=== PATIENT | male | born 1950 | race Caucasian/White ===

== ENCOUNTER 2017-10-17 16:42 | Emergency (ER) | payer OTHER ==
[2017-10-17] MEDS ORDERED: diltiaZEM INJ 5 MG/ML VIAL IVP STA (16:56)
--- NOTE | 2017-10-17 16:56 | ED Physician Documentation ---
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 No Cp or SOA. No H/O cardiac issues. Had a lightheaded episode 6 mos ago but without palpitations then.) Review of Systems Ten Systems: 10 systems reviewed and negative Constitutional: denies: Fever, Chills, Myalgias Ears: denies: Loss of hearing, Ear pain Nose: denies: Rhinorrhea / runny nose, Congestion Throat: denies: Sore throat Cardiac: reports: Palpitations. denies: Chest pain / pressure, Pedal edema, Calf pain Respiratory: denies: Dyspnea, Cough PD PAST MEDICAL HISTORY - Past Medical History Past Medical History: No - Present Medications Home Medications: Ambulatory Orders Medication Instructions Recorded Confirmed Terazosin [Hytrin] 0 mg PO QPM 10/17/17 10/17/17 - Allergies Allergies/Adverse Reactions: Allergies Allergy/AdvReac Type Severity Reaction Status Date / Time codeine Allergy Unknown Verified 10/17/17 16:51 - Social History Does the pt smoke?: No Does the pt drink ETOH?: No Does the pt have substance abuse?: No - Family History Family history: reports: CAD PD ED PE NORMAL - Vitals Vital signs reviewed: Yes - General General: Alert and oriented X 3, No acute distress - HEENT HEENT: PERRL, EOMI - Neck Neck: Supple, no meningeal sign, No bony TTP - Cardiac Cardiac: Other (irreg/irreg, no mmr) - Respiratory Respiratory: No respiratory distress, Clear bilaterally - Abdomen Abdomen: Soft, Non tender - Back Back: No CVA TTP, No spinal TTP - Derm Derm: Normal color, Warm and dry - Extremities Extremities: No edema, No calf tenderness / cord - Neuro Neuro: Alert and oriented X 3 Eye Opening: Spontaneous Motor: Obeys Commands Verbal: Oriented GCS Score: 15 - Psych Psych: Normal mood, Normal affect Results - Vitals Vitals: Vital Signs - 24 hr 10/17/17 10/17/17 10/17/17 16:44 17:05 17:22 Temperature 36.2 C L Heart Rate 92 152 H Respiratory 16 Rate Blood Pressure 103/88 H 104/76 O2 Saturation 98 10/17/17 10/17/17 10/17/17 17:33 18:28 18:59 Temperature Heart Rate 83 74 Respiratory 10 L 16 Rate Blood Pressure 97/69 102/75 112/80 O2 Saturation 96 99 Oxygen O2 Source Room air - EKG (time done) 1649 Rate: Rate (enter#) (128) Rhythm: Atrial fibrillation [place]: LAD QRS: Normal Ischemia: Normal ST segments Computer interpretation: Agree with computer 1857 Rate: Rate (enter#) (74) Rhythm: NSR [place]: LAD Intervals: Normal [place] QRS: Normal Ischemia: Non specific changes - Labs Labs: Laboratory Tests 10/17/17 10/17/17 10/17/17 17:00 17:00 17:00 WBC 7.9 RBC 4.45 L Hgb 13.1 L Hct 39.5 L MCV 88.7 MCH 29.4 MCHC 33.1 RDW 13.7 Plt Count 201 MPV 9.0 Neut # 4.8 Lymph # 2.2 [place] # 0.7 Eos # 0.2 Baso # 0.1 Absolute Nucleated RBC 0.00 Nucleated RBC % 0.1 Sodium 136 Potassium 3.9 Chloride 101 Carbon Dioxide 22 Anion Gap 13.0 BUN 22 H Creatinine 1.0 Estimated GFR (MDRD) 75 L Glucose 96 Calcium 9.2 Total Bilirubin 0.8 AST 25 ALT 20 Alkaline Phosphatase 43 Troponin I < 0.04 Total Protein 7.5 Albumin 4.6 Globulin 2.9 Albumin/Globulin Ratio 1.6 Lipase 26 TSH 10/17/17 17:00 WBC RBC Hgb Hct MCV MCH MCHC RDW Plt Count MPV Neut # Lymph # [place] # Eos # Baso # Absolute Nucleated RBC Nucleated RBC % Sodium Potassium Chloride Carbon Dioxide Anion Gap BUN Creatinine Estimated GFR (MDRD) Glucose Calcium Total Bilirubin AST ALT Alkaline Phosphatase Troponin I Total Protein Albumin Globulin Albumin/Globulin Ratio Lipase TSH 2.51 PD MEDICAL DECISION MAKING - ED course ED course: 67-year-old gentleman presents with new onset and acute atrial fibrillation. He was administered diltiazem with rate control, but still in A. fib. Procainamide drip was started and also given 2.5 mg of Lopressor IV at which point he converted to sinus rhythm. Departure - Departure Disposition: 01 Home, Self Care Clinical Impression: Atrial fibrillation Qualifiers: Atrial fibrillation type: paroxysmal Qualified Code(s): I48.0 - Paroxysmal atrial fibrillation Condition: Good Record reviewed to determine appropriate education?: Yes Instructions: Atrial Fibrillation Dc Comments: Take a baby aspirin daily. Follow-up with your doctor, I suspect he will want to do further testing including but not limited to echocardiogram. Return if worse.
[2017-10-17] MEDS ORDERED: DILTIAZEM 50 MG/10 ML VIAL IVP STA (16:58)
[2017-10-17 17:12] LABS: BASOPHILS # (AUTO) 0.1 10^3/uL (0.0-0.1); EOSINOPHILS # (AUTO) 0.2 10^3/uL (0.0-0.7); EOSINOPHILS % (AUTO) 1.9 %; HGB - HEMOGLOBIN 13.1 g/dL (14.0-18.0); LYMPHOCYTES # (AUTO) 2.2 10^3/uL (1.5-3.5); LYMPHOCYTES % (AUTO) 28.1 %; MEAN CORPUSCULAR HEMOGLOBIN 29.4 pg (27.0-31.0); MEAN CORPUSCULAR HGB CONC 33.1 g/dL (32.0-36.0); MEAN CORPUSCULAR VOLUME 88.7 fL (80.0-94.0); MONOCYTES # (AUTO) 0.7 10^3/uL (0.0-1.0); MONOCYTES % (AUTO) 8.9 %; NEUTROPHILS # (AUTO) 4.8 10^3/uL (1.5-6.6); NEUTROPHILS % (AUTO) 60.1 %; PLT - PLATELET COUNT 201 10^3/uL (130-450); RED BLOOD COUNT 4.45 10^6/uL (4.70-6.10); RED CELL DISTRIBUTION WIDTH 13.7 % (12.0-15.0); WHITE BLOOD COUNT 7.9 x10^3/uL (4.8-10.8)
[2017-10-17] MEDS ORDERED: DILTIAZEM 50 MG/10 ML VIAL IV ONE (17:17)
[2017-10-17 17:31] LABS: ALBUMIN 4.6 g/dL (3.2-5.5); ALBUMIN/GLOBULIN RATIO 1.6 (1.0-2.2); BILIRUBIN,TOTAL 0.8 mg/dL (0.2-1.0); CALCIUM 9.2 mg/dL (8.5-10.3); TOTAL PROTEIN 7.5 g/dL (6.7-8.2)
[2017-10-17] MEDS ORDERED: PROCAINAMIDE 1,000 MG in SODIUM CHLORIDE 0.9% 240 ML IV STA (17:41)
[2017-10-17] MEDS ORDERED: SODIUM CHLORIDE 0.9% 1,000 ML IV ONE (17:42)
[2017-10-17] MEDS ORDERED: METOPROLOL 5 MG/5 ML VIAL IVP STA (18:43)
[2017-10-17 19:25] VITALS: BP 103/72
== END 2017-10-17 19:31 | disposition home or self-care (01) ==
LOC: ED 16:42
DX: I48.0 Paroxysmal atrial fibrillation (principal)
CPT/HCPCS: 36415; 80053; 83690; 84443; 84484; 85025; 93005; 96361; 96374; 96375; 99284; J2690

== ENCOUNTER 2017-11-10 12:54 | Emergency (ER) | payer MEDICARE, OTHER ==
--- NOTE | 2017-11-10 13:24 | ED Physician Documentation ---
History of Present Illness - Stated complaint Stated Complaint: DIZZY - Chief complaint Chief Complaint: General - History obtained from History obtained from: Patient - History of Present Illness Timing: Today (67-year-old gentleman who had a first episode of atrial fibrillation and was seen by me little under month ago and converted with beta blockade here. He saw his GP in the interim and started on an event monitor he has had that for about 2 weeks, for the first week there was no events. For the last week he has had occasional events he does not know what they are. 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 denies: Abdominal Pain PD PAST MEDICAL HISTORY - Present Medications Home Medications: Ambulatory Orders Medication Instructions Recorded Confirmed Terazosin [Hytrin] 0 mg PO QPM 10/17/17 10/17/17 Metoprolol Tartrate 11/10/17 - Allergies Allergies/Adverse Reactions: Allergies Allergy/AdvReac Type Severity Reaction Status Date / Time codeine Allergy Unknown Verified 10/17/17 16:51 - Social History Does the pt smoke?: No Smoking Status: Never smoker Does the pt drink ETOH?: No Does the pt have substance abuse?: No PD ED PE NORMAL - Vitals Vital signs reviewed: Yes - General General: Alert and oriented X 3, No acute distress - HEENT HEENT: PERRL, EOMI - Neck Neck: Supple, no meningeal sign, No bony TTP - Cardiac Cardiac: RRR, No murmur - Respiratory Respiratory: No respiratory distress, Clear bilaterally - Abdomen Abdomen: Normal bowel sounds, Soft, Non tender - Extremities Extremities: No edema, No calf tenderness / cord - Neuro Neuro: Alert and oriented X 3, Other (NIHSS zero) Eye Opening: Spontaneous Motor: Obeys Commands Verbal: Oriented GCS Score: 15 - Psych Psych: Normal mood, Normal affect Results - Vitals Vitals: Vital Signs - 24 hr 11/10/17 11/10/17 11/10/17 13:17 13:25 14:31 Temperature 36.5 C Heart Rate 60 54 L 57 L Respiratory 16 16 Rate Blood Pressure 128/90 H 101/76 O2 Saturation 99 98 98 Oxygen O2 Source Room air - EKG (time done) 1327 Rate: Rate (enter#) (57) Rhythm: NSR [place]: LAD Intervals: Normal [place] QRS: Low voltage Ischemia: Normal ST segments Computer interpretation: Agree with computer - Labs Labs: Laboratory Tests 11/10/17 11/10/17 11/10/17 13:20 13:20 13:20 WBC 7.0 RBC 4.60 L Hgb 13.9 L Hct 40.6 L MCV 88.1 MCH 30.1 MCHC 34.2 RDW 13.3 Plt Count 199 MPV 8.2 Neut # 4.4 Lymph # 1.8 [place] # 0.6 Eos # 0.2 Baso # 0.1 Absolute Nucleated RBC 0.00 Nucleated RBC % 0.0 VBG Total Hgb VBG Oxyhemoglobin VBG Carboxyhemoglobin VBG Methemoglobin Sodium 130 L Potassium 4.1 Chloride 95 L Carbon Dioxide 27 Anion Gap 8.0 BUN 16 Creatinine 0.9 Estimated GFR (MDRD) 85 L Glucose 131 H Calcium 9.4 Magnesium 2.2 Total Bilirubin 1.0 AST 24 ALT 21 Alkaline Phosphatase 44 Troponin I < 0.04 Total Protein 7.4 Albumin 4.5 Globulin 2.9 Albumin/Globulin Ratio 1.6 Lipase 29 11/10/17 13:46 WBC RBC Hgb Hct MCV MCH MCHC RDW Plt Count MPV Neut # Lymph # [place] # Eos # Baso # Absolute Nucleated RBC Nucleated RBC % VBG Total Hgb 13.6 VBG Oxyhemoglobin 84 L VBG Carboxyhemoglobin 0.7 VBG Methemoglobin 0.2 Sodium Potassium Chloride Carbon Dioxide Anion Gap BUN Creatinine Estimated GFR (MDRD) Glucose Calcium Magnesium Total Bilirubin AST ALT Alkaline Phosphatase Troponin I Total Protein Albumin Globulin Albumin/Globulin Ratio Lipase PD MEDICAL DECISION MAKING - ED course ED course: He has vague complaints. No evidence of CVA on exam. In NSR on the monitor here. Departure - Departure Disposition: 01 Home, Self Care Clinical Impression: Dizzy Condition: Good Record reviewed to determine appropriate education?: Yes Instructions: ED Dizziness UKO Comments: Call your doctor to arrange a follow-up appointment, make the next available appointment. In the interim, return anytime if worse or if new symptoms develop. Discharge Date/Time: 11/10/17 14:33
[2017-11-10 13:36] LABS: BASOPHILS # (AUTO) 0.1 10^3/uL (0.0-0.1); BASOPHILS % (AUTO) 0.7 %; EOSINOPHILS # (AUTO) 0.2 10^3/uL (0.0-0.7); EOSINOPHILS % (AUTO) 2.8 %; HGB - HEMOGLOBIN 13.9 g/dL (14.0-18.0); LYMPHOCYTES # (AUTO) 1.8 10^3/uL (1.5-3.5); LYMPHOCYTES % (AUTO) 25.8 %; MEAN CORPUSCULAR HEMOGLOBIN 30.1 pg (27.0-31.0); MEAN CORPUSCULAR HGB CONC 34.2 g/dL (32.0-36.0); MEAN CORPUSCULAR VOLUME 88.1 fL (80.0-94.0); MEAN PLATELET VOLUME 8.2 fL (7.4-11.4); MONOCYTES # (AUTO) 0.6 10^3/uL (0.0-1.0); MONOCYTES % (AUTO) 8.1 %; NEUTROPHILS # (AUTO) 4.4 10^3/uL (1.5-6.6); NEUTROPHILS % (AUTO) 62.6 %; PLT - PLATELET COUNT 199 10^3/uL (130-450); RED CELL DISTRIBUTION WIDTH 13.3 % (12.0-15.0)
[2017-11-10 14:00] LABS: ALBUMIN 4.5 g/dL (3.2-5.5); ALBUMIN/GLOBULIN RATIO 1.6 (1.0-2.2); CALCIUM 9.4 mg/dL (8.5-10.3); CREATININE 0.9 mg/dL (0.6-1.2); MAGNESIUM 2.2 mg/dL (1.7-2.8); TOTAL PROTEIN 7.4 g/dL (6.7-8.2)
[2017-11-10 14:33] VITALS: BP 101/76
== END 2017-11-10 14:33 | disposition home or self-care (01) ==
LOC: ED 12:54
DX: R42 Dizziness and giddiness (principal); R11.0 Nausea
CPT/HCPCS: 36415; 80053; 82375; 83690; 83735; 84484; 85025; 93005; 99283

== ENCOUNTER 2019-04-10 17:53 | Emergency (ER) | payer MEDICARE, OTHER ==
[2019-04-10] MEDS ORDERED: KETOROLAC 30 MG/ML VIAL IVP STA (18:52)
[2019-04-10] MEDS ORDERED: LORazepam 2 MG/ML VIAL IVP STA (18:52)
[2019-04-10] MEDS ORDERED: ONDANSETRON 4 MG/2 ML VIAL IVP STA (18:52)
--- NOTE | 2019-04-10 18:57 | ED Physician Documentation ---
History of Present Illness - Stated complaint Stated Complaint: GROIN HERNIA - Chief complaint Chief Complaint: General - History obtained from History obtained from: Patient - History of Present Illness Timing: Other (4-month history of a left inguinal hernia that is been bothering him on and off. He had been able to reduce it when it pops out but it has been out for about an hour and cannot reduce it.) Review of Systems Ten Systems: 10 systems reviewed and negative Constitutional: reports: Reviewed and negative Cardiac: reports: Reviewed and negative Respiratory: reports: Reviewed and negative PD PAST MEDICAL HISTORY - Past Medical History Past Medical History: Yes Cardiovascular: Atrial fibrillation - Present Medications Home Medications: Ambulatory Orders Medication Instructions Recorded Confirmed Terazosin [Hytrin] 1 mg PO QPM 10/17/17 10/17/17 Metoprolol Tartrate 25 mg PO DAILY 11/10/17 - Allergies Allergies/Adverse Reactions: Allergies Allergy/AdvReac Type Severity Reaction Status Date / Time codeine Allergy Unknown Verified 04/10/19 19:07 - Social History Does the pt smoke?: No Smoking Status: Never smoker Does the pt drink ETOH?: No Does the pt have substance abuse?: No PD ED PE NORMAL - Vitals Vital signs reviewed: Yes - General General: Alert and oriented X 3, No acute distress - HEENT HEENT: PERRL, EOMI - Neck Neck: Supple, no meningeal sign, No bony TTP - Cardiac Cardiac: RRR, No murmur - Respiratory Respiratory: No respiratory distress, Clear bilaterally - Abdomen Abdomen: Other (Mild diffuse tenderness, there is a firm tender left inguinal hernia that I am unable to reduce on initial evaluation.) - Back Back: No CVA TTP, No spinal TTP - Derm Derm: Normal color, Warm and dry - Extremities Extremities: No edema, No calf tenderness / cord - Neuro Neuro: Alert and oriented X 3, Normal speech Results - Vitals Vitals: Vital Signs - 24 hr 04/10/19 04/10/19 04/10/19 18:03 19:13 19:40 Temperature 36.9 C 37.0 C Heart Rate 63 64 54 L Respiratory 16 18 14 Rate Blood Pressure 118/81 H 133/87 H 105/73 O2 Saturation 99 99 96 Oxygen O2 Source Room air - Labs Labs: Laboratory Tests 04/10/19 04/10/19 19:00 19:00 WBC 5.9 RBC 4.26 L Hgb 13.0 L Hct 37.7 L MCV 88.5 MCH 30.5 MCHC 34.5 RDW 12.7 Plt Count 198 MPV 9.6 Neut # (Auto) 3.3 Lymph # (Auto) 1.8 [place] # (Auto) 0.7 Eos # (Auto) 0.1 Baso # (Auto) 0.0 Absolute Nucleated RBC 0.00 Nucleated RBC % 0.0 Sodium 132 L Potassium 4.0 Chloride 95 L Carbon Dioxide 26 Anion Gap 11.0 BUN 17 Creatinine 0.9 Estimated GFR (MDRD) 84 L Glucose 93 Calcium 9.5 Total Bilirubin 0.7 AST 19 ALT 17 Alkaline Phosphatase 42 Total Protein 7.0 Albumin 4.4 Globulin 2.6 Albumin/Globulin Ratio 1.7 Lipase 35 PD MEDICAL DECISION MAKING - ED course ED course: After the administration of some Toradol and Ativan I was able to reduce the hernia. He will follow-up with a surgeon. Departure - Departure Disposition: 01 Home, Self Care Clinical Impression: Incarcerated left inguinal hernia Condition: Good Record reviewed to determine appropriate education?: Yes Instructions: ED Hernia Inguinal Comments: Follow-up with [facility] for a surgical referral. Return for new worsening symptoms. For your records, today received Toradol 30 mg IV and Ativan 1 mg IV to assist in the reduction. You did not throw up with that. Discharge Date/Time: 04/10/19 19:45
[2019-04-10 19:06] LABS: BASOPHILS % (AUTO) 0.5 %; EOSINOPHILS # (AUTO) 0.1 10^3/uL (0.0-0.7); EOSINOPHILS % (AUTO) 2.2 %; LYMPHOCYTES # (AUTO) 1.8 10^3/uL (1.5-3.5); LYMPHOCYTES % (AUTO) 29.8 %; MEAN CORPUSCULAR HEMOGLOBIN 30.5 pg (27.0-31.0); MEAN CORPUSCULAR HGB CONC 34.5 g/dL (32.0-36.0); MEAN CORPUSCULAR VOLUME 88.5 fL (80.0-94.0); MEAN PLATELET VOLUME 9.6 fL (7.4-11.4); MONOCYTES # (AUTO) 0.7 10^3/uL (0.0-1.0); MONOCYTES % (AUTO) 11.1 %; NEUTROPHILS # (AUTO) 3.3 10^3/uL (1.5-6.6); NEUTROPHILS % (AUTO) 56.2 %; PLT - PLATELET COUNT 198 10^3/uL (130-450); RED BLOOD COUNT 4.26 10^6/uL (4.70-6.10); RED CELL DISTRIBUTION WIDTH 12.7 % (12.0-15.0); WHITE BLOOD COUNT 5.9 x10^3/uL (4.8-10.8)
[2019-04-10 19:18] LABS: ALBUMIN 4.4 g/dL (3.2-5.5); ALBUMIN/GLOBULIN RATIO 1.7 (1.0-2.2); BILIRUBIN,TOTAL 0.7 mg/dL (0.2-1.0); CALCIUM 9.5 mg/dL (8.5-10.3); CREATININE 0.9 mg/dL (0.6-1.2)
[2019-04-10 19:41] VITALS: BP 105/73
== END 2019-04-10 19:45 | disposition home or self-care (01) ==
LOC: ED 17:53
DX: K40.30 Unilateral inguinal hernia, with obstruction, without gangrene, not specified as recurrent (principal)
CPT/HCPCS: 36415; 80053; 83690; 85025; 96374; 96375; 99283; J2060

== ENCOUNTER 2019-04-11 20:15 | Day surgery (SDC) | payer MEDICARE ==
[2019-04-11] MEDS ORDERED: SODIUM CHLORIDE 0.9% 1,000 ML IV ONE (21:29)
--- NOTE | 2019-04-11 21:33 | ED Physician Documentation ---
History of Present Illness - Stated complaint Stated Complaint: HERNIA NOT REDUCING - Chief complaint Chief Complaint: Abd Pain - History obtained from History obtained from: Patient - History of Present Illness Timing: Today, How many hours ago (1.5) Pain level max: 7 Pain level now: 6 - Additonal information Additional information: 68-year-old male presents to the emergency department with a left inguinal hernia. States increasing pain tonight and unable to reduce. Seen here last night for same. He is scheduled with a general surgeon on Monday in [place] for consultation. Review of Systems Ten Systems: 10 systems reviewed and negative Constitutional: denies: Fever, Chills Ears: denies: Ear pain Nose: denies: Rhinorrhea / runny nose, Congestion Throat: denies: Sore throat Cardiac: denies: Chest pain / pressure GI: denies: Vomiting, Diarrhea Skin: denies: Rash Musculoskeletal: denies: Neck pain, Back pain Neurologic: denies: Headache PD PAST MEDICAL HISTORY - Past Medical History Past Medical History: Yes Cardiovascular: Atrial fibrillation GI: Hiatal hernia : Benign prostate hypertrophy - Past Surgical History Past Surgical History: Yes Ortho: Rotator cuff repair - Present Medications Home Medications: Ambulatory Orders Medication Instructions Recorded Confirmed Terazosin [Hytrin] 1 mg PO QPM 10/17/17 10/17/17 Metoprolol Tartrate 25 mg PO DAILY 11/10/17 - Allergies Allergies/Adverse Reactions: Allergies Allergy/AdvReac Type Severity Reaction Status Date / Time codeine Allergy Unknown Verified 04/11/19 20:27 - Social History Does the pt smoke?: No Smoking Status: Never smoker Does the pt drink ETOH?: No Does the pt have substance abuse?: No - Immunizations Immunizations: TDAP >10years/unknown PD ED PE NORMAL - Vitals Vital signs reviewed: Yes - General General: Alert and oriented X 3, No acute distress - HEENT HEENT: Moist mucous membranes - Neck Neck: Supple, no meningeal sign - Cardiac Cardiac: RRR - Respiratory Respiratory: No respiratory distress, Clear bilaterally - Abdomen Abdomen: Soft, Non tender, Non distended - Male Male : Other (L inguinal - incarcerated hernia. unable to reduce. firm, tender) - Derm Derm: Warm and dry - Extremities Extremities: No edema, No calf tenderness / cord - Neuro Neuro: Alert and oriented X 3 - Psych Psych: Normal mood, Normal affect Results - Vitals Vitals: Vital Signs - 24 hr 04/11/19 20:20 Temperature 36.7 C Heart Rate 62 Respiratory 16 Rate Blood Pressure 121/79 O2 Saturation 99 Oxygen O2 Source Room air - EKG (time done) 2143 Rate: Rate (enter#) (59) Rhythm: NSR [place]: Normal Intervals: Normal [place] QRS: Normal Ischemia: Normal ST segments PD MEDICAL DECISION MAKING - ED course Complexity details: reviewed old records, reviewed results, re-evaluated patient, considered differential, d/w patient, d/w family, d/w consultant technology ED course: 68-year-old male with a recurrent incarcerated left inguinal hernia. Unable to reduce tonight. I spoke with Dr. Reed at 2200, [facility] and patient can have surgery here. I spoke with Dr. Alberts, general surgery on-call who will come evaluate the patient. Also spoke with Dr. Brandon for preop evaluation. Patient will go to the OR for reduction. This document was made in part using voice recognition software. While efforts are made to proofread this document, sound alike and grammatical errors may occur. Departure - Departure Disposition: ED Transfer to [facility] Clinical Impression: Incarcerated left inguinal hernia Condition: Stable
[2019-04-11] MEDS ORDERED: LACTATED RINGERS 1,000 ML IV STA (22:09)
[2019-04-11 22:15] LABS: BASOPHILS # (AUTO) 0.1 10^3/uL (0.0-0.1); BASOPHILS % (AUTO) 0.9 %; EOSINOPHILS # (AUTO) 0.2 10^3/uL (0.0-0.7); EOSINOPHILS % (AUTO) 3.6 %; HGB - HEMOGLOBIN 12.9 g/dL (14.0-18.0); LYMPHOCYTES # (AUTO) 1.7 10^3/uL (1.5-3.5); LYMPHOCYTES % (AUTO) 30.8 %; MEAN CORPUSCULAR HEMOGLOBIN 29.6 pg (27.0-31.0); MEAN CORPUSCULAR HGB CONC 33.9 g/dL (32.0-36.0); MEAN CORPUSCULAR VOLUME 87.2 fL (80.0-94.0); MEAN PLATELET VOLUME 9.9 fL (7.4-11.4); MONOCYTES # (AUTO) 0.6 10^3/uL (0.0-1.0); MONOCYTES % (AUTO) 10.3 %; NEUTROPHILS % (AUTO) 54.2 %; PLT - PLATELET COUNT 207 10^3/uL (130-450); RED BLOOD COUNT 4.36 10^6/uL (4.70-6.10); RED CELL DISTRIBUTION WIDTH 12.7 % (12.0-15.0); WHITE BLOOD COUNT 5.6 x10^3/uL (4.8-10.8)
[2019-04-11 22:26] LABS: ALBUMIN 4.4 g/dL (3.2-5.5); ALBUMIN/GLOBULIN RATIO 1.6 (1.0-2.2); CALCIUM 9.2 mg/dL (8.5-10.3); CREATININE 0.9 mg/dL (0.6-1.2); TOTAL PROTEIN 7.1 g/dL (6.7-8.2)
--- NOTE | 2019-04-11 22:33 | CONSULTATION NOTE ---
Referring Provider Name of Referring Provider:: Shaun Alberts MD Consult Date: 04/11/19 Chief Complaint - Chief Complaint Chief Complaint: left groin pain w hx of hernia reduced last night History of Present Illness - Admitted From Admitted From:: Home/ER - History Obtained From Records Reviewed: [facility] History obtained from: Patient and his Exam Limitations: none - History of Present Illness HPI Comment/Other: He is a 68-year-old white male whose past medical history with regards to cardiac and lung disease consist of a brief episode of atrial fibrillation about a year and a half ago. His father, mother, and sister have a history of atrial fibrillation. There is intolerant of Coumadin. His sister has also had an [place] with a stent. He himself has no other history of cardiac disease. To his recollection his cardiac evaluation showed a normal stress test and a normal echocardiogram. He does not have any valvular heart disease. He has had no recent change in cardiovascular endurance. He denies chest pain, palpitations, shortness of breath, edema, orthopnea. He denies any cough, congestion in his chest, or change in overall physical status. He has no renal disease, or lung diseases. He was seen in the emergency room last night with left groin pain and was found to have a reducible inguinal hernia. This afternoon, around 4:00, he felt the bulge get bigger again, and he was able to reduce it on his own. Then later this evening, the bulge is come back, it is increasingly painful, and he came back to the emergency room. He is scheduled for an elective consultation next Monday with a surgeon at the [facility]. In our emergency room he is afebrile, normotensive, and oxygenating well on room air. He is alert, oriented. And his only physical exam finding is the incarcerated left inguinal hernia that is not able to be reduced. There is no imaging study done. He is mildly hyponatremic at 127. Lipase is mildly e levated at 138. White cell count is normal at 5.6 thousand. History - Past Medical History Cardiovascular: reports: Atrial fibrillation (he uses metoprolol for rate control in case he gets an episode.) Respiratory: reports: None Neuro: reports: None Endocrine/Autoimmune: reports: None GI: reports: Hiatal hernia : reports: Benign prostate hypertrophy (uses terazosin. ) HEENT: reports: None Psych: reports: None Musculoskeletal: reports: None Derm: reports: None MRSA Hx?: No Other Past Medical History: he reacts to anesthesia with severe nausea after his scalp and rotator cuff surgery - Past Surgical History Ortho: reports: Rotator cuff repair Derm: reports: Other (skin surgery on scalp) - Family & Social History Family History Comment/Other: Mom and dad . Both w hx of afib. Sister w [place] and afib. no children Living arrangement: At home Living Situation: With spouse/s.o. Social History Notes: Smoked in college but never seriously. Drinks 2 glasses of wine a week. to his first [place] 2 years ago after penitentiary and working his own [employer]. No hx of recreational lsubstance abuse. - Substance History Use: Uses substance without health or social issues: Alcohol Abuse: Recurrent use of substance despite neg consequences: NONE Dependence: Experiences withdrawal or developed tolerances: NONE - POLST Patient has POLST: No POLST Status: Full Code Meds/Allgy - Home Medications Home Medications: Ambulatory Orders Medication Instructions Recorded Confirmed Terazosin [Hytrin] 1 mg PO QPM 10/17/17 10/17/17 Metoprolol Tartrate 25 mg PO DAILY 11/10/17 - Allergies Allergies/Adverse Reactions: Allergies Allergy/AdvReac Type Severity Reaction Status Date / Time codeine Allergy Unknown Verified 04/11/19 20:27 Review of Systems - Constitutional Constitutional: denies: Fatigue, Fever, Chills, Malaise, Weakness, Poor appetite - Eyes Eyes: denies: Pain, Irritation, Amaurosis, Blurred vision, Field loss, Vision loss - Ears, Nose & Throat Ears, Nose & Throat: denies: Ear pain, Hearing loss, Hearing aids, Tinnitus, Vertigo, Nasal pain, Nasal discharge, Sore throat, Hoarseness - Cardiovascular Cariovascular: denies: Irregular heart rate, Palpitations, Chest pain, Edema, Syncope, Exertional dyspnea, Decr. exercise tolerance - Respiratory Respiratory: denies: Cough, Sputum production, Wheezing, Orthopnea, SOB at rest, SOB with exertion - Gastrointestinal Gastrointestinal: reports: Abdominal pain (LLQ), Abdominal distention (mild, to day). denies: Constipation, Diarrhea, Change in bowel habits, Black stools, Bloody stools, Nausea - Genitourinary Genitourinary: reports: Frequency, Urgency, Nocturia. denies: Dysuria, Hematuria, Incontinence, Flank pain - Musculoskeletal Musculoskeletal: denies: Muscle pain, Back pain, Muscle aches, Stiffness, Gout - Integumentary Integumentary: denies: Rash, Pruritis, Lesions, Dryness, Lumps - Neurological Neurological: denies: General weakness, Focal weakness, Headache, Dizziness, Memory problems, Pre-existing deficit - Psychiatric Psychiatric: denies: Depression, Anxiety, Suicidal - Endocrine Endocrine: denies: Polyuria, Polydypsia, Polyphagia - Hematologic/Lymphatic Hematologic/Lymphatic: denies: Anemia, Bruising, Blood clots Exam - Vital Signs Reviewed Vital Signs: Yes Vital Signs: Vital Signs x48h Temp Pulse Resp BP Pulse Ox 04/11/19 20:20 36.7 C 62 16 121/79 99 - Physical Exam General Appearance: positive: Alert, Moderate distress (from LLQ pain), Other ( at the bedside, well nourished, well developed white male.) Eyes Bilateral: positive: PERRL, EOMI ENT: positive: Pharynx nml Neck: positive: No JVD. negative: Stiff neck, Carotid bruit Respiratory: positive: Chest non-tender. negative: Wheezes, Rales, Rhonchi Cardiovascular: positive: Regular rate & rhythm. negative: Systolic murmur, Gallop/S4, Friction rub Peripheral Pulses: positive: 1+ Abdomen: positive: No distention, Tenderness (LLQ), Other (hypoactive bowel sounds). negative: Guarding, Rebound, Hepatomegaly, Splenomegaly Skin: positive: Warm, Dry Extremities: positive: Non-tender, No pedal edema Neurologic/Psychiatric: positive: Oriented x3, CN's nml (2-12), Motor nml, Sensation nml Conclusion/Plan - Diagnosis Diagnosis: 1. Preoperative evaluation in this 68-year-old white male has a NSQIP surgical risk of 2.3%. Average risk is 3.6%. His cardiac complication risk is 0%.His EKG shows sinus rhythm. Lab evaluation has mild hyponatremia. While he has a history of atrial fibrillation, he has not had it in over a year and his review of systems are negative. His only concern is that of anesthetic reaction. He gets severely nauseated would like to avoid that. 2. BPH: I would recommend adding flomax in the post operative setting if a todd is used in the OR during the case. 3. Mild hyponatremia. Correct with IVF, 0.9 NS. We appreciate our ability to provide you with a consultation. The patient will not be followed after this initial consultation. - Plan Plan: Patient is to go to the operating room tonight. We will discuss the case with general surgery and anesthesia. - Lab Results Lab results reviewed: Yes Fish Bones: 04/11/19 21:55 04/11/19 21:55 - EKG Results EKG Interpreted Independently: No EKG Comparison: Unchanged from prior EKG EKG Findings: NSR
[2019-04-11] MEDS ORDERED: DEXAMETHASONE 4 MG/ML VIAL IVP ONE (23:36)
[2019-04-11] MEDS ORDERED: fentaNYL 100 MCG/2 ML VIAL IVP ONE (23:36)
[2019-04-11] MEDS ORDERED: PROPOFOL 200 MG/20 ML VIAL IVP ONE (23:36)
[2019-04-11] MEDS ORDERED: NEOSTIGMINE 1 MG/1 ML 10 ML MDV IVP ONE (23:36)
[2019-04-11] MEDS ORDERED: ROCURONIUM 50 MG/5 ML VIAL IVP ONE (23:36)
[2019-04-11] MEDS ORDERED: ePHEDrine 50 MG/ML VIAL IVP ONE (23:36)
[2019-04-11] MEDS ORDERED: GLYCOPYRROLATE 1 MG/5 ML VIAL IVP ONE (23:36)
[2019-04-11] MEDS ORDERED: METOCLOPRAMIDE 10 MG/2 ML VIAL IVP ONE (23:36)
[2019-04-11] MEDS ORDERED: MIDAZOLAM 2 MG/2 ML VIAL IVP ONE (23:36)
--- NOTE | 2019-04-11 23:44 | ANESTHESIA ---
Pre-Anesthesia VS, & Labs - Diagnosis Diagnosis 1. Preoperative evaluation in this 68-year-old white male has a NSQIP surgical risk of 2.3%. Average risk is 3.6%. His cardiac complication risk is 0%.His EKG shows sinus rhythm. Lab evaluation has mild hyponatremia. While he has a history of atrial fibrillation, he has not had it in over a year and his review of systems are negative. His only concern is that of anesthetic reaction. He gets severely nauseated would like to avoid that. 2. BPH: I would recommend adding flomax in the post operative setting if a todd is used in the OR during the case. 3. Mild hyponatremia. Correct with IVF, 0.9 NS We appreciate our ability to provide you with a consultation. The patient will not be followed after this initial consultation. - Procedure inguinal hernia repair, incarcerated Vital Signs: Temp Pulse Resp BP Pulse Ox 36.7 C 59 L 14 117/80 96 04/11/19 22:54 04/11/19 23:24 04/11/19 23:24 04/11/19 23:24 04/11/19 23:24 Height 5 ft 11 in Weight (kg) 86.183 kg Body Mass Index 26.4 - NPO >8 hours - Lab Results Current Lab Results: Laboratory Tests 04/11/19 21:55: Lactic Acid 0.8 04/11/19 21:55: Sodium 127 L, Potassium 4.1, Chloride 89 L, Carbon Dioxide 29, Anion Gap 9.0, BUN 18, Creatinine 0.9, Estimated GFR (MDRD) 84 L, Glucose 90, Calcium 9.2, Total Bilirubin 1.0, AST 20, ALT 18, Alkaline Phosphatase 41 L, Total Protein 7.1, Albumin 4.4, Globulin 2.7, Albumin/Globulin Ratio 1.6, Lipase 138 H 04/11/19 21:55: WBC 5.6, RBC 4.36 L, Hgb 12.9 L, Hct 38.0 L, MCV 87.2, MCH 29.6, MCHC 33.9, RDW 12.7, Plt Count 207, MPV 9.9, Neut # (Auto) 3.0, Lymph # (Auto) 1.7, [place] # (Auto) 0.6, Eos # (Auto) 0.2, Baso # (Auto) 0.1, Absolute Nucleated RBC 0.00, Nucleated RBC % 0.0 Fish Bones: 04/11/19 21:55 04/11/19 21:55 Home Medications and Allergies Active Medications Lactated Ringer's (Lr) 1,000 mls @ 150 mls/hr IV .[id number] STA Stop: 04/12/19 04:48 Last Admin: 04/11/19 22:16 Dose: 150 mls/hr Terazosin [Hytrin] 1 mg PO QPM 10/17/17 Metoprolol Tartrate 25 mg PO DAILY 11/10/17 Allergies/Adverse Reactions: Allergies Allergy/AdvReac Type Severity Reaction Status Date / Time codeine Allergy Unknown Verified 04/11/19 20:27 Anes History & Medical History - Anesthetic History Anesthesia Complications: reports: Post-Operative Nausea/Vomiting - Medical History Cardiovascular: reports: Atrial fibrillation (he uses metoprolol for rate control in case he gets an episode.) Pulmonary: reports: None Gastrointestinal: reports: Hiatal hernia Urinary: reports: Benign prostate hypertrophy (uses terazosin. ) Neuro: reports: None Musculoskeletal: reports: None Endocrine/Autoimmune: reports: None Skin: reports: None Smoking Status: Never smoker Other Past Medical History: he reacts to anesthesia with severe nausea after his scalp and rotator cuff surgery - Surgical History Orthopedic: Rotator cuff repair Dermatologic: Other (skin surgery on scalp) Exam General: Alert Dental: WNL Mouth Opening: Greater than 4 Fingerbreadths Mallampati classification: II Thyromental Distance: greater than 6 cm Respiratory: Lungs clear Cardiovascular: Regular rate, Normal S1, Normal S2 Mental/Cognitive Status: Alert/Oriented X3 Plan Anesthesia Type: General Consent for Procedure(s) Verified and Reviewed: Yes Code Status: Attempt Resuscitation ASA classification: 2-Mild systemic disease Is this case an emergency?: Yes
[2019-04-11] MEDS ORDERED: BUPIVACAINE 0.25% PF 30 ML VIAL ONE (23:58)
--- NOTE | 2019-04-12 00:05 | CONSULTATION NOTE ---
Referring Provider Name of Referring Provider:: Dr. Addi Kaplan Consult Date: 04/11/19 Chief Complaint - Chief Complaint Chief Complaint: Incarcerated left inguinal hernia History of Present Illness - Admitted From Admitted From:: [facility]'s emergency department room 7 - History Obtained From Records Reviewed: Yes History obtained from: Patient, chart, and Dr. Addi Kaplan Exam Limitations: None - History of Present Illness HPI Comment/Other: The patient is a 68-year-old gentleman who was evaluated in room 7 at [facility]'s emergency department for a recurrent incarcerated left inguinal hernia. The patient was seen yesterday for the same problem and the patient states that Dr. Jose Armando Valdez "worked his magic on him" and reduced the hernia. The hernia recurred this evening and despite the best efforts of Dr. Addi Kaplan could not be reduced. The patient denies any recurrent problems with urination, constipation, or coughing. There are no similar complaints on the right-hand side. History - Past Medical History Cardiovascular: reports: Atrial fibrillation (he uses metoprolol for rate control in case he gets an episode.) Respiratory: reports: None Neuro: reports: None Endocrine/Autoimmune: reports: None GI: reports: Hiatal hernia : reports: Benign prostate hypertrophy (uses terazosin. ) HEENT: reports: None Psych: reports: None Musculoskeletal: reports: None Derm: reports: None MRSA Hx?: No Other Past Medical History: he reacts to anesthesia with severe nausea after his scalp and rotator cuff surgery - Past Surgical History Ortho: reports: Rotator cuff repair Derm: reports: Other (skin surgery on scalp) - Family & Social History Family History Comment/Other: Mom and dad . Both w hx of afib. Sister w [place] and afib. no children Living arrangement: At home Living Situation: With spouse/s.o. Social History Notes: Smoked in college but never seriously. Drinks 2 glasses of wine a week. to his first and they live in their own home on the [place]. 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 No hx of recreational lsubstance abuse. - Substance History Use: Uses substance without health or social issues: Alcohol Abuse: Recurrent use of substance despite neg consequences: NONE Dependence: Experiences withdrawal or developed tolerances: NONE - POLST Patient has POLST: No POLST Status: Full Code Meds/Allgy - Home Medications Home Medications: Ambulatory Orders Medication Instructions Recorded Confirmed Terazosin [Hytrin] 1 mg PO QPM 10/17/17 10/17/17 Metoprolol Tartrate 25 mg PO DAILY 11/10/17 - Allergies Allergies/Adverse Reactions: Allergies Allergy/AdvReac Type Severity Reaction Status Date / Time codeine Allergy Unknown Verified 04/11/19 20:27 Morphine AdvReac Nausea Uncoded 04/12/19 00:07 Review of Systems - Constitutional Constitutional: denies: Fatigue, Fever, Chills, Malaise - Eyes Eyes: denies: Pain - Ears, Nose & Throat Ears, Nose & Throat: denies: Ear pain - Cardiovascular Cariovascular: denies: Irregular heart rate, Palpitations, Chest pain - Respiratory Respiratory: denies: Cough, Sputum production - Gastrointestinal Gastrointestinal: denies: Abdominal pain - Genitourinary Genitourinary: denies: Dysuria - Musculoskeletal Musculoskeletal: denies: Muscle pain - Integumentary Integumentary: denies: Rash - Neurological Neurological: denies: General weakness, Focal weakness Exam - Vital Signs Reviewed Vital Signs: Yes Vital Signs: Vital Signs x48h Temp Pulse Resp BP Pulse Ox 04/11/19 23:24 59 L 14 117/80 96 04/11/19 22:54 36.7 C 61 13 115/83 H 96 04/11/19 20:20 36.7 C 62 16 121/79 99 - Physical Exam General Appearance: positive: No acute distress Eyes Bilateral: positive: No lid inflammation, Conjunctivae nml, No scleral icterus ENT: positive: Dry mucous membranes Neck: positive: Trachea midline Respiratory: positive: Chest non-tender, No respiratory distress, Breath sounds nml Cardiovascular: positive: Regular rate & rhythm Abdomen: positive: Non-tender, Tenderness (At site of left inguinal hernia. The hernia itself is incarcerated. There is no right inguinal hernia. Testes descended. Penis normal. No overlying erythema or ecchymosis.) Skin: positive: Color nml Extremities: positive: Non-tender, Nml appearance Neurologic/Psychiatric: positive: Oriented x3, Motor nml, Sensation nml, Mood/affect nml Conclusion/Plan - Diagnosis Diagnosis: Recurrent incarcerated left inguinal hernia - Plan Plan: Urgent recurrent incarcerated left inguinal herniorrhaphy likely with or without mesh. The indications, procedure, alternatives including not repairing the hernia, and risks including but not limited to infection, bleeding, nerve injur y, and were fully explained to the patient and all questions were fully answered. I susana pictures describing what a hernia is and the various ways the hernia can be repaired. I discussed the pros and cons of differing herniorrhaphies. I explained that following the surgery I did not want him lifting anything over 15 pounds for 6 weeks to allow the area to heal optimally and decrease the likelihood that the hernia would recur. Verbal and written consent was obtained. The patient in preparation for his surgery will be nothing by mouth, receive a soap water shower, and receive 2 g of Ancef preoperatively for prophylaxis against surgical infection. I also asked the patient to let me know if there is any way we can make his stay at [facility] more comfortable and he stated that he would let me know. 45 minutes of [id number] time spent with the patient, the majority of which was spent in discussion, coordination of care, and completion of the requisite paperwork Dragon disclaimer: This document was created in part using voice recognition technology. Because of the inherent limitations of the system ([employer]'s [employer] (acquired by [employer]on Dictate user manual states that the licensee understands that speech recognition is a statistical process and that recognition errors are inherent in the process), occasional same sounding word substitutions and grammatical errors do occur and persist despite proofreading. Please read this document for context. - Lab Results Lab results reviewed: Yes Kael Bones: 04/11/19 21:55 04/11/19 21:55
[2019-04-12] MEDS ORDERED: HYDROmorphone 1 MG/ML CARPUJECT IVP STA ×2 (00:09→00:15)
[2019-04-12] MEDS ORDERED: LACTATED RINGERS 1,000 ML IV ONE ×2 (00:19→00:55)
[2019-04-12] MEDS ORDERED: BUPIVACAINE 0.25% PF 30 ML VIAL SUBQ ONE (00:53)
[2019-04-12] MEDS ORDERED: BUPIVACAINE 0.5% PF 30 ML VIAL SUBQ ONE (01:37)
[2019-04-12] MEDS ORDERED: ONDANSETRON 4 MG/2 ML VIAL IVP PRN (01:49)
[2019-04-12] MEDS ORDERED: oxyCODONE 5 MG TABLET PO PRN (01:49)
[2019-04-12] MEDS ORDERED: HYDROmorphone 0.5 MG/0.5 ML SYRINGE IVP PRN (01:49)
--- NOTE | 2019-04-12 02:02 | OPERATIVE REPORT ---
Operative Report - General Planned Procedure: Recurrent incarcerated left inguinal herniorrhaphy Pre-Op Diagnosis: Recurrent incarcerated left inguinal hernia Procedure Performed: Recurrent incarcerated indirect left inguinal herniorrhaphy with mesh Post Op Diagnosis: Recurrent incarcerated left indirect inguinal hernia - Procedure Note Primary Surgeon: Shaun Alberts MD Anesthesia Provider: Shira Aparicio CRNA Anesthesia Technique: General ET tube, Local (30 mL of half percent Marcaine) IV Fluids (mL): 600 Estimated Blood Loss (mL): 10 Drain/Tube Type: Other (None.) Complications: None. - Other Other Information/Narrative: OPERATIVE DESCRIPTION/REPORT: After verbal and written informed consent was obtained detailing the risks of infection, bleeding requiring transfusion with its risks, nerve injury, and , and after I met with the patient confirming the surgery and the site of the surgery and after initialing the site of the surgery with a surgical marker, the patient was brought to the operative suite and placed supine on the operating table. Great care was taken to avoid pressure points to prevent pressure necrosis or nerve injury. Monitoring devices were applied along with TEDs and pneumatic compressive stockings (to prevent DVT). The patient received preoperative antibiotics for surgical prophylaxis. Shira Aparicio CRNA sedated and anesthetized the patient for the entire procedure. The patient was prepped and draped in the usual sterile manner. With the patient draped my initials were clearly visible. A "time in" then confirmed that the patient was identified with 3 identifiers (name, date and medical record number), the history and physical was in the chart, the signed consent confirming the procedure was in the chart, the patient was in the correct position, the aforementioned prophylactic measures were in place or given, we had the correct personnel and equipment to complete the procedure and that anesthesia, surgery and nursing were given an opportunity to express any concerns. With the agreement of everyone in the room, we proceeded with the operation. A standard inguinal incision was made and dissection was carried down to the external oblique aponeurosis using a combination of Metzenbaum scissors and Bovie electrocautery. The external oblique aponeurosis was cleared of overlying adherent tissue, and the external ring was delineated. The external oblique was the incised with a scalpel and this incision was carried out to the external ring using Metzenbaum scissors. Having exposed the inguinal canal, the cord structures were from the canal using blunt dissection, and a [place] drain was placed around the cord structures at the level of the pubic tubercle. This Misha drain was then used to retract the cord structures as needed. As I was performing this, the hernia spontaneously reduced.. The cord was then explored using a combination of sharp and blunt dissection, and the sac was found anteromedially to the cord structures. The sac was dissected free from the cord structures using a combination of blunt dissection and Bovie electrocautery. Once preperitoneal fat was encountered, the dissection stopped I opened dissected using Bovie electrocautery to ensure that there was nothing stuck in the sac. The only thing that I found in the sac was some blood-tinged serous fluid. There was no foul smell or purulence noted. I high-ligated the sac using a 3-0 Vicryl suture, transected the sac, cauterized the stump, and allow the stump to retract back into the abdominal cavity and a large Bard Perfix plug (Ref# [id number], Lot# [id number], use date 2023-11-21) inserted into the internal ring. The plug was secured to the internal ring by interrupted 2-0 PDS sutures. The Bard Perfix enlay patch was then placed on the floor of the inguinal canal and secured in place using interrupted 0 PDS sutures to the conjoined tendon superiorly, pubic tubercle medially, and shelving edge inferiorly. By reinforcing the floor with the enlay patch, a new internal ring was thus formed. The Misha drain was removed. The wound was then irrigated using sterile saline, and hemostasis was obtained using Bovie electrocautery. The incision in the external oblique was approximated using a 3-0 Vicryl in a running fashion, thus reforming the external ring. The fascia and skin was then injected with the 1/2% marcaine for skilled nursing pain control. The skin incision was approximated with 4-0 Monocryl in a subcuticular fashion. The skin was prepped with benzoin and steristrips were applied. At this point a time out was performed that confirmed that all the counts were correct, the procedure that was performed, the blood loss, the IV fluids administered, and the patients condition. A dressing was then applied. Gentle downward traction ensured that the testes were well seated in the scrotum. Having tolerated the procedure well, the patient was taken to short stay in good and stable condition. Dragon disclaimer: This document was created in part using voice recognition technology. Because of the inherent limitations of the system ([employer]'s Dragon Dictate user manual states that the licensee understands that speech recognition is a statistical process and that recognition errors are inherent in the process), occasional same sounding word substitutions and grammatical errors do occur and persist despite proofreading. Please read this document for context.
[2019-04-12 11:54] VITALS: BP 106/70
--- NOTE | 2019-04-12 12:21 | PROVIDER PROGRESS NOTE ---
Subjective - General Procedure Date: 04/12/19 Post Op Days: 0 Procedure Performed: Incarcerated LEFT inguinal herniorrhaphy - Review of Systems Wound/Incisions: positive: Healing well General: positive: No symptoms HEENT: positive: No symptoms Pulmonary: positive: No symptoms Cardiovascular: positive: No symptoms Gastrointestinal: positive: No symptoms Genitourinary: positive: No symptoms Musculoskeletal: positive: No symptoms Skin: positive: No symptoms Objective - Patient Data Reviewed Vital Signs: Yes Vital Signs: Vital Signs x48h Temp Pulse Resp BP Pulse Ox 04/12/19 11:54 36.6 C 57 L 16 106/70 100 04/12/19 08:03 36.7 C 63 16 113/65 100 04/12/19 05:30 36.7 C 64 16 111/78 97 Weight: Weight 04/10/19 04/11/19 04/12/19 23:59 23:59 23:59 Weight (kg) 86.183 kg 89 kg Intake & Output: Intake and Output Totals x24h 04/10/19 04/11/19 04/12/19 23:59 23:59 23:59 Intake Total 10 2120 Output Total 2024 Balance 10 95 - Lab Results Lab Results: 04/11/19 21:55 04/11/19 21:55 Other Lab Results: Lab Results x24hrs 04/11/19 04/11/19 04/11/19 Range/Units 21:55 21:55 21:55 WBC 5.6 (4.8-10.8) x10^3/uL RBC 4.36 L (4.70-6.10) 10^6/uL Hgb 12.9 L (14.0-18.0) g/dL Hct 38.0 L (42.0-52.0) % MCV 87.2 (80.0-94.0) fL MCH 29.6 (27.0-31.0) pg MCHC 33.9 (32.0-36.0) g/dL RDW 12.7 (12.0-15.0) % Plt Count 207 (130-450) 10^3/uL MPV 9.9 (7.4-11.4) fL Neut # (Auto) 3.0 (1.5-6.6) 10^3/uL Lymph # (Auto) 1.7 (1.5-3.5) 10^3/uL [place] # (Auto) 0.6 (0.0-1.0) 10^3/uL Eos # (Auto) 0.2 (0.0-0.7) 10^3/uL Baso # (Auto) 0.1 (0.0-0.1) 10^3/uL Absolute Nucleated RBC 0.00 x10^3/uL Nucleated RBC % 0.0 /100WBC Sodium 127 L (135-145) mmol/L Potassium 4.1 (3.5-5.0) mmol/L Chloride 89 L (101-111) mmol/L Carbon Dioxide 29 (21-32) mmol/L Anion Gap 9.0 (6-13) BUN 18 (6-20) mg/dL Creatinine 0.9 (0.6-1.2) mg/dL Estimated GFR (MDRD) 84 L (>89) Glucose 90 (70-100) mg/dL Lactic Acid 0.8 (0.5-2.2) mmol/L Calcium 9.2 (8.5-10.3) mg/dL Total Bilirubin 1.0 (0.2-1.0) mg/dL AST 20 (10-42) IU/L ALT 18 (10-60) IU/L Alkaline Phosphatase 41 L (42-121) IU/L Total Protein 7.1 (6.7-8.2) g/dL Albumin 4.4 (3.2-5.5) g/dL Globulin 2.7 (2.1-4.2) g/dL Albumin/Globulin Ratio 1.6 (1.0-2.2) Lipase 138 H (22-51) U/L - Physical Exam Wound/Incisions: positive: Healing well General Appearance: positive: No acute distress Eyes Bilateral: positive: No lid inflammation, Conjunctivae nml, No scleral icterus ENT: positive: No signs of dehydration Neck: positive: Trachea midline Respiratory: positive: Chest non-tender Cardiovascular: positive: Regular rate & rhythm ABX Reporting Has patient been on IV antibiotics over the past 48 hours?: Yes Impression/Plan - Problem List Problem List: D0 s/p incarcerated LEFt inguianl herniorrhaphy with mesh Urinated. Tolerating po. OK to DC home. Instructions given.
== END 2019-04-12 12:56 | disposition home or self-care (01) ==
LOC: ED 20:15 → SDS 23:35 → MS2 04-12 02:09 → SDS 04-12 12:56
PROVIDERS: ATTEND Surgery
PROC: 0YU60JZ Supplement Left Inguinal Region with Synthetic Substitute, Open Approach (ICD-10-PCS; principal; 2019-04-12 00:15)
DX: K40.31 Unilateral inguinal hernia, with obstruction, without gangrene, recurrent (principal); E87.1 Hypo-osmolality and hyponatremia; I48.91 Unspecified atrial fibrillation; N40.1 Benign prostatic hyperplasia with lower urinary tract symptoms; R35.0 Frequency of micturition; R39.15 Urgency of urination; R35.1 Nocturia; Z82.49 Family history of ischemic heart disease and other diseases of the circulatory system
CPT/HCPCS: 36415; 49507; 80053; 83605; 83690; 85025; 93005; 96360; 99284; 99285; C1781; J2765; J7120